=== PATIENT | male | born 1970 | race Caucasian/White ===

== ENCOUNTER → 2016-12-26 | Outpatient (CLI) | payer OTHER ==
[~2016-12-26] MED LIST: IBUPROFEN800 MG PO
== END | disposition home or self-care (01) ==
LOC: RAD 14:26
DX: M25.78 Osteophyte, vertebrae (principal); M54.2 Cervicalgia; M25.512 Pain in left shoulder

== ENCOUNTER → 2016-12-29 | Outpatient (CLI) | payer OTHER | END | disposition home or self-care (01) | LOC: MRI 07:55 | DX: M48.02 Spinal stenosis, cervical region (principal); M50.30 Other cervical disc degeneration, unspecified cervical region; M47.892 Other spondylosis, cervical region ==

== ENCOUNTER 2021-11-19 10:48 | Emergency (ER) | payer BC ==
[~2021-11-19] VITALS: Ht 180.3 cm
[2021-11-19] MEDS ORDERED: PREDNISONE20 M1 PO (12:37)
[2021-11-19] MEDS ORDERED: PEPCID40 MG PO (12:37)
[2021-11-19] MEDS ORDERED: HYDROXYZINE HCL25 MG PO (12:37)
== END 2021-11-19 12:52 | disposition home or self-care (01) ==
LOC: ED 10:48
DX: R60.0 Localized edema (principal); T47.1X5A Adverse effect of other antacids and anti-gastric-secretion drugs, initial encounter; Y92.89 Other specified places as the place of occurrence of the external cause

== ENCOUNTER → 2023-03-06 | Outpatient (CLI) | payer BC ==
[~2023-03-06] MED LIST changes: +HYDROXYZINE HCL25 MG PO; +PEPCID40 MG PO; +PREDNISONE20 M1 PO
[2023-03-09 16:13] LABS: TESTOSTERONE FREE, (DIRECT) 8.7 pg/mL (7.2-24.0)
== END | disposition home or self-care (01) ==
LOC: LAB 09:26
PROVIDERS: ATTEND Family Medicine
DX: Z12.5 Encounter for screening for malignant neoplasm of prostate (principal); E29.1 Testicular hypofunction; R53.83 Other fatigue